=== PATIENT | female | born 1975 | race Caucasian/White ===

== ENCOUNTER → 2020-04-03 | Outpatient (CLI) | payer OTHER ==
--- NOTE | 2020-04-04 06:04 | KCIC ---
3 view radiographs of the left thumb 04/03/2020 CLINICAL HISTORY: Smash injury to the left thumb with pain and bruising. PA, lateral and oblique digital radiographs of the left thumb were obtained. No fracture or dislocati on of the left thumb is seen. No radiopaque foreign body is noted. IMPRESSION: No fracture or dislocation of the left thumb is seen. Electronically signed by: Florian Robles MD (04/04/2020 6:01 AM) [id number]
== END ==
LOC: KCIC 11:27
PROVIDERS: ATTEND Nurse Practitioner Gerontology
DX: S69.92XA Unspecified injury of left wrist, hand and finger(s), initial encounter (principal); X58.XXXA Exposure to other specified factors, initial encounter; Y93.89 Activity, other specified; Y92.89 Other specified places as the place of occurrence of the external cause; Y99.8 Other external cause status
CPT/HCPCS: 73140

== ENCOUNTER → 2021-07-01 | Outpatient (CLI) | payer OTHER ==
--- NOTE | 2021-07-01 15:08 | KCIC ---
XR CHEST 2V History: Asthma, history of Covid April 2019. Comparison: None. Technique: PA and lateral chest radiographs. Findings: The lungs are adequately and symmectrically inflated. No airspace consolidation, pleural effusion or pneumothorax. The cardiomediastinal silhoutte and pulmonary vasculature are within normal limits. Sof t tissues and osseous structures are unremarkable. Impression: 1. No acute cardiopulmonary process. Electronically signed by: Aj Mejia MD (07/01/2021 3:05 PM) [id number]
== END ==
LOC: KCIC 13:30
PROVIDERS: ATTEND Internal Medicine Pulmonary Disease
DX: J45.909 Unspecified asthma, uncomplicated (principal); Z86.16 Personal history of COVID-19
CPT/HCPCS: 71046

== ENCOUNTER → 2021-07-05 | Outpatient (CLI) | payer OTHER ==
[2021-07-05 10:55] LABS: BASO % 0 % (0-3); EOS # 0.1 x10^3/uL (0.0-0.7); EOS % 2 % (0-3); HEMATOCRIT 41.2 % (36.0-47.0); HEMOGLOBIN 14.7 g/dL (12.0-15.5); LYMPH # 1.3 x10^3/uL (1.0-4.8); LYMPH % 21 % (24-48); MEAN CORPUSCULAR HEMOGLOBIN 30 pg (25-35); MEAN CORPUSCULAR HGB CONC 36 g/dL (31-37); MEAN CORPUSCULAR VOLUME 85 fL (79-100); MONO # 0.4 x10^3/uL (0.0-1.1); MONO % 6 % (0-9); NEUT # 4.5 x10^3/uL (1.8-7.7); NEUT % 71 % (31-73); PLATELET COUNT 348 x10^3/uL (140-400); RED BLOOD COUNT 4.83 x10^6/uL (3.50-5.40); RED CELL DISTRIBUTION WIDTH 12.8 % (11.5-14.5); WHITE BLOOD COUNT 6.3 x10^3/uL (4.0-11.0)
== END ==
LOC: LAB 10:17
PROVIDERS: ATTEND Internal Medicine Pulmonary Disease
DX: R06.02 Shortness of breath (principal)
CPT/HCPCS: 36415; 82785; 85025